=== PATIENT | female | born 1995 | race Caucasian/White ===

== ENCOUNTER 2022-03-12 17:09 | Emergency (ER) | payer OTHER ==
[~2022-03-12] VITALS: Ht 162.6 cm; Wt 63.6 kg
[~2022-03-12 17:09] MED LIST: INSU100C4 SQ; INSU100C6 SQ
[2022-03-12 18:31] VITALS: BP 126/75
== END 2022-03-12 19:29 | disposition home or self-care (01) ==
LOC: EMS 17:23
DX: F32.9 Major depressive disorder, single episode, unspecified (principal); E11.9 Type 2 diabetes mellitus without complications
CPT/HCPCS: 99281; Z7502

== ENCOUNTER 2024-05-08 17:43 | Emergency (ER) | payer OTHER ==
[~2024-05-08] VITALS: Ht 162.6 cm; Wt 64.6 kg
[2024-05-08 17:48] VITALS: BP 132/77; PULSE 97; RESP 18; TEMP 98.7; O2SAT 99
[2024-05-08 18:27] LABS: BASOPHILS % (AUTO) 0.6 % (0.0-2.0); EOSINOPHILS % (AUTO) 0.6 % (1.0-6.0); HEMATOCRIT 39.6 % (36-46); HEMOGLOBIN 13.2 g/dL (12.0-16.0); LYMPHOCYTES # (AUTO) 2.4 K/uL (1.0-4.8); LYMPHOCYTES % (AUTO) 28.7 % (22.0-44.0); MEAN CORPUSCULAR HEMOGLOBIN 30.8 pg (26.0-34.0); MEAN CORPUSCULAR HGB CONC 33.3 G/dL (31.0-37.0); MEAN CORPUSCULAR VOLUME 93 fL (80-100); MONOCYTES # (AUTO) 0.6 K/uL (0.1-1.0); NEUTROPHILS # (AUTO) 5.3 K/uL (1.8-7.7); NEUTROPHILS % (AUTO) 63.1 % (40.0-70.0); PLATELET COUNT (AUTO) 300 K/uL (150-450); RED BLOOD CELL COUNT(AUTO) 4.29 MIL/uL (4.00-5.20); RED CELL DISTRIBUTION WIDTH 12.7 % (11.5-14.5); WHITE BLOOD COUNT (AUTO) 8.4 K/uL (4.5-11.0)
[2024-05-08 18:28] LABS: ANION GAP 8 mmol/L (8-16); CALCIUM, TOTAL 9.6 mg/dL (8.8-10.5); CARBON DIOXIDE 29 mmol/L (22-29); CHLORIDE 100 mmol/L (98-107); CREATININE 0.92 mg/dL (0.60-1.30); GLOMERULAR FILTR. RATE CALC > 60 mL/min (>60); GLUCOSE,RANDOM 106 mg/dL (70-110); POTASSIUM 5.1 mmol/L (3.5-5.1); SODIUM SERUM 137 mmol/L (136-145); UREA NITROGEN, BLOOD 28 mg/dL (7-18)
[2024-05-08 18:40] LABS: ALANINE AMINOTRANSFERASE 15 U/L (12-78); ALBUMIN 4.1 g/dL (3.4-5.0); ALKALINE PHOSPHATASE 106 U/L (46-116); ASPARTATE AMINOTRANSFERASE 15 U/L (15-37); BILIRUBIN,TOTAL 0.6 mg/dL (0.1-1.0); HCG,QUANTITATIVE 1 mIU/mL (0-6); LIPASE 15 U/L (16-77); TOTAL PROTEIN, SERUM 8.7 g/dL (6.4-8.2)
[2024-05-08 20:25] LABS: COVID AG,FIA SOURCE NASAL SWAB
[2024-05-08 20:30] LABS: GLUCOMETER DEV NAME(LOC) ERT.6; GLUCOSE,POINT OF CARE 90 MG/DL (70-110)
[2024-05-08 20:54] LABS: SARS-COV2 (COVID) ANTIGEN,FIA Negative (Negative)
[2024-05-08 20:58] LABS: INFLUENZA TYPE A NEGATIVE FOR TYPE A (NEGATIVE); INFLUENZA TYPE B NEGATIVE FOR TYPE B (NEGATIVE)
[2024-05-08] MEDS ORDERED: HYDR-4808 PO (21:17)
[2024-05-08] MEDS: HydrOXYzine PAMOATE 25 MG CAPSULE PO ONE (21:33)
== END 2024-05-08 21:34 | disposition home or self-care (01) ==
LOC: EMS 17:43
DX: F41.9 Anxiety disorder, unspecified (principal); R45.851 Suicidal ideations; E11.9 Type 2 diabetes mellitus without complications; F32.A Depression, unspecified; Z79.4 Long term (current) use of insulin; Z20.822 Contact with and (suspected) exposure to COVID-19
CPT/HCPCS: 80048; 80076; 82962; 83690; 84702; 85025; 87804; 99283

== ENCOUNTER 2024-12-15 08:55 | Emergency (ER) | payer MEDICAID, OTHER ==
[~2024-12-15] VITALS: Ht 162.6 cm; Wt 65.9 kg
[~2024-12-15 08:55] MED LIST changes: +INSLAN SQ; -INSU100C4 SQ; -INSU100C6 SQ; +LURA60TA PO; +SERT-440 PO; +TRAZ-283 PO
[2024-12-15 09:02] VITALS: TEMP 98.2
[2024-12-15] MEDS ORDERED: LURA80TA2 PO (09:11)
[2024-12-15] MEDS ORDERED: VENL-66 PO (09:11)
[2024-12-15] MEDS ORDERED: CARI6CAP PO (09:11)
[2024-12-15] MEDS ORDERED: INSU100V SQ (09:11)
[2024-12-15 09:44] LABS: PLATELET COUNT (AUTO) 298 K/uL (150-450); RED BLOOD CELL COUNT(AUTO) 4.28 MIL/uL (4.00-5.20); RED CELL DISTRIBUTION WIDTH 12.2 % (11.5-14.5); WHITE BLOOD COUNT (AUTO) 7.7 K/uL (4.5-11.0)
[2024-12-15 10:03] LABS: ASPARTATE AMINOTRANSFERASE 12.0 U/L (15-37); CREATINE KINASE, TOTAL ONLY 36.0 U/L (26-192); TOTAL PROTEIN, SERUM 8.4 g/dL (6.4-8.2)
[2024-12-15 10:28] LABS: CALCIUM, TOTAL 9.7 mg/dL (8.8-10.5); CREATININE 0.82 mg/dL (0.60-1.30); GLOMERULAR FILTR. RATE CALC > 60 mL/min (>60); GLUCOSE,RANDOM 130 mg/dL (70-110); UREA NITROGEN, BLOOD 23 mg/dL (7-18)
[2024-12-15 10:30] LABS: SODIUM SERUM 137 mmol/L (136-145)
[2024-12-15 10:57] LABS: TROPONIN I-HIGH SENSITIVITY Less Than 4 ng/L (<51)
[2024-12-15 11:08] VITALS: BP 113/77; PULSE 91; RESP 16; O2SAT 99
== END 2024-12-15 11:13 | disposition home or self-care (01) ==
LOC: EMS 08:57
DX: I95.9 Hypotension, unspecified (principal); E11.9 Type 2 diabetes mellitus without complications; F32.A Depression, unspecified; F41.9 Anxiety disorder, unspecified; Z79.899 Other long term (current) drug therapy
CPT/HCPCS: 80048; 80076; 82550; 82962; 84484; 84703; 85025; 93005; 99284